=== PATIENT | female | born 1985 | race Two or more races ===

== ENCOUNTER 2018-07-17 06:06 | Day surgery (SDC) | payer OTHER ==
[~2018-07-17] VITALS: Ht 157.5 cm; Wt 46.7 kg
[~2018-07-17 06:06] MED LIST: ASHWAGANDHA PO; B CO1TAB37 PO; FERR325T17 PO; IBUP-1222 PO; NONE PER PT; OXYC-302 PO; TURM500C4 PO
[2018-07-17] MEDS ORDERED: LACTATED RINGERS 1,000 ML IV SCH (06:13)
[2018-07-17 06:27] VITALS: BP 107/70
[2018-07-17] MEDS ORDERED: BUPIVACAINE/PF 0.25% ONE (06:44)
[2018-07-17] MEDS ORDERED: MIDAZOLAM 1 MG/ML, 2ML ONE (07:29)
[2018-07-17] MEDS ORDERED: FENTANYL PF 100 MCG/2ML ONE (07:30)
[2018-07-17] MEDS ORDERED: DEXAMETHASONE 4 MG/ML, 1ML ONE (07:31)
[2018-07-17] MEDS ORDERED: PROPOFOL 10 MG/ML, 20ML ONE (07:31)
[2018-07-17] MEDS ORDERED: SUCCINYLCHOLINE 20 MG/ML, 10ML ONE (07:31)
[2018-07-17] MEDS ORDERED: ROCURONIUM 10 MG/ML,10ML ONE (07:31)
[2018-07-17] MEDS ORDERED: ONDANSETRON 2MG/ML, 2ML ONE (07:31)
[2018-07-17] MEDS ORDERED: NEOSTIGMINE 1 MG/ML, 10ML ONE (07:31)
[2018-07-17] MEDS ORDERED: GLYCOPYRROLATE 0.2MG/1ML, 5ML ONE (07:31)
[2018-07-17] MEDS ORDERED: METOCLOPRAMIDE 5 MG/ML, 2ML IV PRN (08:00)
[2018-07-17] MEDS ORDERED: OXYcodone 5 MG/5 ML ORAL.SOL UDC PO PRN (08:00)
[2018-07-17] MEDS ORDERED: MEPERIDINE/PF 25MG/0.5ML IVPush PRN (08:00)
[2018-07-17] MEDS ORDERED: ACETAMINOPHEN 325 MG TABLET PO PRN (08:00)
[2018-07-17] MEDS ORDERED: FENTANYL PF 100 MCG/2ML IV PRN (08:00)
[2018-07-17] MEDS ORDERED: LORazepam 2 MG/ML, 1ML IVPush PRN (08:00)
[2018-07-17] MEDS ORDERED: HYDROmorphone 2 MG/ML, 1ML IVPush PRN (08:00)
[2018-07-17] MEDS ORDERED: ACETAMINOPHEN 650 MG/20.3 ML UDC ONE (08:42)
[2018-07-17] MEDS ORDERED: OXYcodone 5 MG/5 ML ORAL.SOL UDC ONE (08:42)
== END 2018-07-17 13:30 | disposition home or self-care (01) ==
LOC: OUT 06:06
PROVIDERS: ATTEND Student in an Organized Health Care Education/Training Program
DX: Z30.2 Encounter for sterilization (principal); Z98.890 Other specified postprocedural states; Z79.899 Other long term (current) drug therapy; Z80.3 Family history of malignant neoplasm of breast
CPT/HCPCS: 36415; 58670; 84702; 88302; J0330; J1100; J2250; J2405; J2704; J2710; J3010; J3490; J7120

== ENCOUNTER 2019-08-19 07:28 | Emergency (ER) | payer OTHER ==
[~2019-08-19] VITALS: Ht 157.5 cm; Wt 47.7 kg
--- NOTE | 2019-08-19 07:49 | NUR ---
THIS IS A 33 YEAR OLD PT BIB HER BROTHER FOR N/V AND ABD PAIN THAT STARTED AT 0300 THIS AM. SHE STATES IT GOT MUCH WORSE AN HOUR AGO. PT IS NOT PRODUCING VOMIT, STATES IT'S BEEN SALIVA. PT IS NOT MORE TENDER ON LEFT SIDE, HOWEVER IS GAURDING THAT SIDE IN A POSITION OF COMFORT. Addendum: 08/19/19 at 0829 by LATA PT IS NOT MORE TENDER UPON PALPATION ON LEFT SIDE
[2019-08-19] MEDS ORDERED: FAMOTIDINE 20 MG/2 ML ONE (07:53)
[2019-08-19] MEDS ORDERED: ONDANSETRON 2MG/ML, 2ML ONE (07:53)
[2019-08-19] MEDS ORDERED: KETOROLAC 30 MG/1 ML ONE (07:53)
[2019-08-19] MEDS ORDERED: SODIUM CHLORIDE FLUSH 10ML SYR IVF ONE (08:00)
[2019-08-19] MEDS ORDERED: SODIUM CHLORIDE 0.9% 1,000ML IVBOLUS ONE (08:00)
[2019-08-19] MEDS ORDERED: KETOROLAC 30 MG/1 ML IVPush ONE (08:00)
[2019-08-19] MEDS ORDERED: ONDANSETRON 2MG/ML, 2ML IVPush ONE (08:00)
[2019-08-19] MEDS ORDERED: MORPHINE SULFATE 4 MG/ML, 1ML IVPush PRN (08:00)
[2019-08-19] MEDS ORDERED: FAMOTIDINE 20 MG/2 ML IV ONE (08:00)
[2019-08-19 08:07] LABS: BASOPHILS # (AUTO) 0.04 x10^3/uL (0-0.1); BASOPHILS % (AUTO) 1 % (0-1); EOSINOPHILS # (AUTO) 0.01 x10^3/uL (0-0.4); EOSINOPHILS % (AUTO) 0 % (1-7); LYMPHOCYTES # (AUTO) 0.85 x10^3/uL (1-3.4); LYMPHOCYTES % (AUTO) 14 % (22-44); MD NO; MEAN CORPUSCULAR HEMOGLOBIN 26.1 pg (27.0-34.8); MEAN CORPUSCULAR HGB CONC 32.2 g/dL (32.4-35.8); MEAN CORPUSCULAR VOLUME 81.2 fL (80-100); MEAN PLATELET VOLUME 8.5 fL (7.4-10.4); MONOCYTES # (AUTO) 0.17 x10^3/uL (0.2-0.8); MONOCYTES % (AUTO) 3 % (2-9); NEUTROPHILS # (AUTO) 5.08 x10^3/uL (1.8-6.8); NEUTROPHILS % (AUTO) 83 % (42-75); PLATELET COUNT 359 x10^3/uL (130-400); RED BLOOD COUNT 4.53 x10^6/uL (3.82-5.3); RED CELL DISTRIBUTION WIDTH 15.2 % (9.6-15.2)
[2019-08-19 08:12] LABS: ALANINE AMINOTRANSFERASE 21 U/L (12-78); ALBUMIN 4.4 g/dL (3.4-5.0); ANION GAP 9 mmol/L (5-15); CALCIUM 9.5 mg/dL (8.5-10.1); CHLORIDE 108 mmol/L (98-107); CREATININE 1.06 mg/dL (0.55-1.02)
[2019-08-19 08:17] LABS: ALKALINE PHOSPHATASE 54 U/L (45-117); BILIRUBIN,TOTAL 0.6 mg/dL (0.2-1.0); TOTAL PROTEIN 7.9 g/dL (6.4-8.2)
--- NOTE | 2019-08-19 08:28 | NUR ---
PT UP TO BEDSIDE COMMODE, STEADY ON FEET. PT TO IMAGING.
[2019-08-19 08:38] LABS: MICROSCOPIC NOT IND
--- NOTE | 2019-08-19 08:43 | NUR ---
PT BACK FROM IMAGING. PT STATES RELIEF FROM PAIN AND NAUSEA. PT NO LONGER GAURDING, GIVEN PILLOW FOR COMFORT. CALL LIGHT WITHIN REACH. PT EDUCATED TO CALL IF HER PAIN RETURNS.
[2019-08-19] MEDS ORDERED: HYDROcodone/APAP 5/325 TABLET PO ONE (09:00)
[2019-08-19] MEDS ORDERED: HYDROcodone/APAP 5/325 TABLET ONE (09:03)
[2019-08-19 09:12] VITALS: BP 110/65
--- NOTE | 2019-08-19 09:16 | NUR ---
late entry for 0855: assuming pt care. received bedside report from ERICH Lara
--- NOTE | 2019-08-19 09:16 | NUR ---
medication administered per order. ride coming from [facility]. will monitor post medical device, then ready for d/c. no other needs requested at this time.
--- NOTE | 2019-08-19 09:48 | NUR ---
Patient/Caregiver given discharge instructions and they have confirmed that they understand the instructions. Patient ambulatory with steady gait. PT LEFT WITH ALL PERSONAL BELONGINGS. PIV D/C WITH TIP INTACT. PRESSURE DRESSING APPLIED.
== END 2019-08-19 10:00 | disposition home or self-care (01) ==
LOC: ED 08:58
DX: N13.30 Unspecified hydronephrosis (principal); N13.2 Hydronephrosis with renal and ureteral calculous obstruction
CPT/HCPCS: 36415; 74176; 80053; 81003; 84703; 85025; 96374; 96375; 99284; J1885; J2405; J3490; J7030